=== PATIENT | male | born 1985 | race Caucasian/White ===

== ENCOUNTER 2018-05-03 09:28 | Emergency (ER) | payer SELFPAY ==
[2018-05-03] MEDS: NICARDipine HCL 30 MG CAPSULE PO (10:02)
[2018-05-03 10:27] LABS: ADD MAN DIFF? NO
[2018-05-03 10:28] LABS: WHITE BLOOD COUNT 13.9 10^3/ul (4.8-10.8)
[2018-05-03 10:28] LABS: BASOPHIL # 0.1 10^3/ul (0.0-0.1); BASOPHILS % 0.5 % (0.0-2.0); EOSINOPHILS # 0.3 10^3/ul (0.0-0.5); EOSINOPHILS % 2.2 % (0.0-7.0); HEMATOCRIT 46.4 % (42.0-52.0); HEMOGLOBIN 15.6 g/dl (14.0-18.0); LYMPHOCYTES % 21.8 % (15.0-51.0); MEAN CORPUSCULAR HEMOGLOBIN 30.1 pg (29.0-33.0); MEAN CORPUSCULAR HGB CONC 33.6 g/dl (32.0-37.0); MEAN CORPUSCULAR VOLUME 89.6 fl (82.0-101.0); MEAN PLATELET VOLUME 9.2 fl (7.4-10.4); MONOCYTES % 7.4 % (0.0-11.0); NEUTROPHIL # 9.4 10^3/ul (1.6-7.5); NEUTROPHILS % 67.9 % (39.0-77.0); PLATELET COUNT 366 10^3/UL (140-415); RED BLOOD COUNT 5.18 10^6/ul (4.70-6.10); RED CELL DISTRIBUTION WIDTH 13.4 % (11.5-14.5)
[2018-05-03 11:02] LABS: ANION GAP 16 (8-16); BLOOD UREA NITROGEN 17 mg/dl (7-20); CALCIUM 9.1 mg/dl (8.4-10.2); CARBON DIOXIDE 25 mmol/L (21-31); CHLORIDE 103 mmol/L (97-110); CREATININE 1.14 mg/dl (0.61-1.24); GLUCOSE 113 mg/dl (70-220); POTASSIUM 3.6 mmol/L (3.5-5.1); SODIUM 140 mmol/L (135-144)
[2018-05-03 11:14] LABS: TROPONIN-I 0.027 ng/ml (0.000-0.120)
[2018-05-03] MEDS: LORAZEPAM 2 MG INJ IV (12:07)
[2018-05-03] MEDS: SOD CHLORIDE 0.9% 1,000 ML IV (12:09)
[2018-05-03] MEDS: IOHEXOL 100 ML (13:32)
[2018-05-03] MEDS: SOD CHLORIDE 0.9% 100 ML (13:32)
[2018-05-03] MEDS: FUROSEMIDE 20 MG TAB PO (13:59)
== END 2018-05-03 14:28 | disposition home or self-care (01) ==
LOC: E/R 09:28
DX: I50.9 Heart failure, unspecified (principal); I10 Essential (primary) hypertension
CPT/HCPCS: 36415; 71045; 71275; 80048; 84484; 85025; 93005; 99285-25